=== PATIENT | female | born 1965 | race Caucasian/White ===

== ENCOUNTER 2019-02-14 23:46 | Inpatient (IN) | payer OTHER ==
[2019-02-15] MEDS: LORAZEPAM 2 MG INJ IV ×5 (00:46→20:06)
[2019-02-15] MEDS: SOD CHLORIDE 0.9% 1,000 ML IV (00:47)
[2019-02-15 01:00] LABS: ADD MAN DIFF? NO
[2019-02-15 01:03] LABS: BASOPHIL # 0.1 10^3/ul (0.0-0.1); BASOPHILS % 0.7 % (0.0-2.0); EOSINOPHILS # 0.1 10^3/ul (0.0-0.5); EOSINOPHILS % 1.4 % (0.0-7.0); HEMATOCRIT 32.6 % (37.0-47.0); HEMOGLOBIN 11.8 g/dl (12.0-16.0); LYMPHOCYTES # 1.7 10^3/ul (0.8-2.9); LYMPHOCYTES % 23.1 % (15.0-51.0); MEAN CORPUSCULAR HEMOGLOBIN 34.9 pg (29.0-33.0); MEAN CORPUSCULAR HGB CONC 36.2 g/dl (32.0-37.0); MEAN CORPUSCULAR VOLUME 96.4 fl (82.0-101.0); MEAN PLATELET VOLUME 10.5 fl (7.4-10.4); MONOCYTE # 0.6 10^3/ul (0.3-0.9); MONOCYTES % 7.6 % (0.0-11.0); NEUTROPHILS % 66.8 % (39.0-77.0); PLATELET COUNT 205 10^3/UL (140-415); RED BLOOD COUNT 3.38 10^6/ul (4.20-5.40); RED CELL DISTRIBUTION WIDTH 12.2 % (11.5-14.5)
[2019-02-15 01:03] LABS: WHITE BLOOD COUNT 7.4 10^3/ul (4.8-10.8)
[2019-02-15 01:20] LABS: ALANINE AMINOTRANSFERASE 27 IU/L (13-69); ALBUMIN 4.7 g/dl (3.3-4.9); ALBUMIN/GLOBULIN RATIO 1.34; ALKALINE PHOSPHATASE 172 IU/L (42-121); ANION GAP 17 (5-13); ASPARTATE AMINO TRANSFERASE 91 IU/L (15-46); BILIRUBIN,INDIRECT 0.7 mg/dl (0-1.1); BILIRUBIN,TOTAL 0.7 mg/dl (0.2-1.3); BLOOD UREA NITROGEN 10 mg/dl (7-20); CALCIUM 8.9 mg/dl (8.4-10.2); CARBON DIOXIDE 26 mmol/L (21-31); CHLORIDE 84 mmol/L (97-110); CREATININE 0.81 mg/dl (0.44-1.00); Estimated GFR > 60 mL/min (>60); GLUCOSE 107 mg/dl (70-220); POTASSIUM 3.8 mmol/L (3.5-5.1); SODIUM 127 mmol/L (135-144); TOTAL PROTEIN 8.2 g/dl (6.1-8.1)
[2019-02-15 01:24] LABS: INR 1.04; PARTIAL THROMBOPLASTIN TIME 25.6 Sec (23.0-35.0); PROTIME 13.7 Sec (11.9-14.9); PT RATIO 1.1
[2019-02-15 01:42] LABS: ACETAMINOPHEN < 10.0 ug/ml (10.0-30.0); ETHANOL < 10.0 mg/dl (0-0); SALICYLATE 1.1 mg/dl (5.0-30.0)
[2019-02-15 02:14] LABS: TROPONIN-I < 0.012 ng/ml (0.000-0.120)
[2019-02-15] MEDS ORDERED: SOD CHLORIDE 0.9% 1,000 ML IV (04:03)
[2019-02-15] MEDS ORDERED: DOCUSATE SODIUM 100 MG CAP PO (04:30)
[2019-02-15] MEDS ORDERED: ONDANSETRON 4 MG INJ IV ×2 (04:30)
[2019-02-15] MEDS ORDERED: BISACODYL (EC) 5 MG TAB PO (04:30)
[2019-02-15] MEDS ORDERED: ACETAMINOPHEN 325 MG TAB PO (04:30)
[2019-02-15] MEDS ORDERED: NACL 0.9% 3 ML SYG IV (04:30)
[2019-02-15 05:34] LABS: ADD MAN DIFF? NO
[2019-02-15 05:35] LABS: ADD UMIC YES; AMPHETAMINE/METHAMPHETAMINE Negative (NEGATIVE); BARBITURATES Negative (NEGATIVE); BENZODIAZEPINES Negative (NEGATIVE); CANNABINOIDS Negative (NEGATIVE); COCAINE Negative (NEGATIVE); OPIATES Negative (NEGATIVE); UR ASCORBIC ACID NEGATIVE (NEGATIVE); UR BACTERIA FEW /HPF (NONE SEEN); UR BILIRUBIN (Dip) NEGATIVE (NEGATIVE); UR BLOOD (Dip) 1+ mg/dL (NEGATIVE); UR CLARITY CLEAR (CLEAR); UR COLOR YELLOW (YELLOW); UR GLUCOSE (Dip) NEGATIVE (NEGATIVE); UR KETONES (Dip) TRACE mg/dL (NEGATIVE); UR LEUKOCYTE ESTERASE (Dip) TRACE Leu/ul (NEGATIVE); UR NITRITE (Dip) NEGATIVE (NEGATIVE); UR RBC 2 /HPF (0-5); UR SPECIFIC GRAVITY (Dip) 1.004 (1.003-1.030); UR TOTAL PROTEIN (Dip) NEGATIVE (NEGATIVE); UR UROBILINOGEN (Dip) NEGATIVE (NEGATIVE); UR WBC 6 /HPF (0-5)
[2019-02-15 05:36] LABS: BASOPHIL # 0.1 10^3/ul (0.0-0.1); BASOPHILS % 0.6 % (0.0-2.0); EOSINOPHILS % 0.4 % (0.0-7.0); HEMATOCRIT 29.7 % (37.0-47.0); HEMOGLOBIN 10.8 g/dl (12.0-16.0); LYMPHOCYTES # 1.8 10^3/ul (0.8-2.9); LYMPHOCYTES % 19.6 % (15.0-51.0); MEAN CORPUSCULAR HEMOGLOBIN 35.3 pg (29.0-33.0); MEAN CORPUSCULAR HGB CONC 36.4 g/dl (32.0-37.0); MEAN CORPUSCULAR VOLUME 97.1 fl (82.0-101.0); MEAN PLATELET VOLUME 10.4 fl (7.4-10.4); MONOCYTE # 0.5 10^3/ul (0.3-0.9); NEUTROPHIL # 6.5 10^3/ul (1.6-7.5); NEUTROPHILS % 73.1 % (39.0-77.0); PLATELET COUNT 180 10^3/UL (140-415); RED BLOOD COUNT 3.06 10^6/ul (4.20-5.40); RED CELL DISTRIBUTION WIDTH 12.1 % (11.5-14.5)
[2019-02-15] MEDS ORDERED: LORAZEPAM 2 MG INJ IV ×2 (06:00)
[2019-02-15 06:06] LABS: ALANINE AMINOTRANSFERASE 24 IU/L (13-69); ALBUMIN 3.8 g/dl (3.3-4.9); ALBUMIN/GLOBULIN RATIO 1.26; ALKALINE PHOSPHATASE 133 IU/L (42-121); ANION GAP 15 (5-13); ASPARTATE AMINO TRANSFERASE 70 IU/L (15-46); BILIRUBIN,INDIRECT 0.6 mg/dl (0-1.1); BILIRUBIN,TOTAL 0.6 mg/dl (0.2-1.3); BLOOD UREA NITROGEN 9 mg/dl (7-20); CALCIUM 7.9 mg/dl (8.4-10.2); CARBON DIOXIDE 24 mmol/L (21-31); CHLORIDE 90 mmol/L (97-110); CREATININE 0.66 mg/dl (0.44-1.00); Estimated GFR > 60 mL/min (>60); GLUCOSE 89 mg/dl (70-220); POTASSIUM 3.5 mmol/L (3.5-5.1); SODIUM 129 mmol/L (135-144); TOTAL PROTEIN 6.8 g/dl (6.1-8.1)
[2019-02-15 06:16] LABS: PHENYTOIN (DILANTIN) < 3.0 ug/ml (10.0-20.0)
[2019-02-15] MEDS ORDERED: THIAMINE 200 MG INJ IV (08:30)
[2019-02-15] MEDS: SOD CHLORIDE 0.9% 500 ML IV ×2 (08:42→16:16)
[2019-02-15] MEDS: THIAMINE 500 MG in SOD CHLORIDE 0.9% 250 ML IV ×3 (10:13→23:12)
[2019-02-15] MEDS ORDERED: DIPHENHYDRAMINE 1%/ZINC 28.3 GM CR TOP (10:30)
[2019-02-15 10:49] LABS: PHOSPHORUS 4.2 mg/dl (2.5-4.9)
[2019-02-15 10:51] LABS: AMMONIA < 9 umol/l (9-30)
[2019-02-15 10:54] LABS: MAGNESIUM 0.8 mg/dl (1.7-2.5)
[2019-02-15] MEDS: POTASSIUM CHLORIDE 100 ML IVPB ×2 (11:00→14:59)
[2019-02-15] MEDS: PHENYTOIN 1,000 MG in SOD CHLORIDE 0.9% 100 ML IV (12:00)
[2019-02-15] MEDS: DIPHENHYDRAMINE 50 MG INJ IV (13:13)
[2019-02-15] MEDS: MAGNESIUM SULFATE 4 GM/100 ML 100 ML IVPB (13:13)
[2019-02-15] MEDS: LEVETIRACETAM 750 MG TAB PO ×2 (13:15→20:02)
[2019-02-15] MEDS: CHLORDIAZEPOXIDE 25 MG CAP PO ×2 (13:15→20:02)
[2019-02-15] MEDS: PHENYTOIN 100 MG CAP PO ×2 (13:16→20:02)
[2019-02-15] MEDS: MULTIVITAMINS 10 ML, THIAMINE 100 MG, FOLIC ACID 1 MG in SOD CHLORIDE 0.9% 1,000 ML IVPB (14:07)
[2019-02-15] MEDS: POTASSIUM CHLORIDE (SR) 20 MEQ TAB PO (14:38)
[2019-02-15] MEDS ORDERED: HALOPERIDOL 5 MG INJ IM (16:30)
[2019-02-16] MEDS: LORAZEPAM 2 MG INJ IV ×4 (00:37→23:29)
[2019-02-16] MEDS: THIAMINE 500 MG in SOD CHLORIDE 0.9% 250 ML IV ×3 (05:00→21:09)
[2019-02-16 05:59] LABS: ADD MAN DIFF? NO
[2019-02-16 06:09] LABS: WHITE BLOOD COUNT 4.3 10^3/ul (4.8-10.8)
[2019-02-16 06:09] LABS: BASOPHILS % 0.7 % (0.0-2.0); EOSINOPHILS # 0.1 10^3/ul (0.0-0.5); EOSINOPHILS % 1.4 % (0.0-7.0); HEMATOCRIT 31.7 % (37.0-47.0); HEMOGLOBIN 10.5 g/dl (12.0-16.0); LYMPHOCYTES # 1.2 10^3/ul (0.8-2.9); LYMPHOCYTES % 28.4 % (15.0-51.0); MEAN CORPUSCULAR HGB CONC 33.1 g/dl (32.0-37.0); MEAN CORPUSCULAR VOLUME 102.6 fl (82.0-101.0); MEAN PLATELET VOLUME 10.6 fl (7.4-10.4); MONOCYTE # 0.3 10^3/ul (0.3-0.9); MONOCYTES % 7.5 % (0.0-11.0); NEUTROPHIL # 2.6 10^3/ul (1.6-7.5); NEUTROPHILS % 61.5 % (39.0-77.0); PLATELET COUNT 170 10^3/UL (140-415); RED BLOOD COUNT 3.09 10^6/ul (4.20-5.40); RED CELL DISTRIBUTION WIDTH 12.5 % (11.5-14.5)
[2019-02-16 06:57] LABS: IRON 46 ug/dl (35-150)
[2019-02-16 07:07] LABS: % IRON SATURATION 30 % SAT (22-52); TOTAL IRON BINDING CAPACITY 155 ug/dl (241-421)
[2019-02-16 07:22] LABS: ALANINE AMINOTRANSFERASE 23 IU/L (13-69); ALBUMIN 3.3 g/dl (3.3-4.9); ALBUMIN/GLOBULIN RATIO 1.13; ALKALINE PHOSPHATASE 115 IU/L (42-121); ANION GAP 9 (5-13); ASPARTATE AMINO TRANSFERASE 81 IU/L (15-46); BILIRUBIN,INDIRECT 0.4 mg/dl (0-1.1); BILIRUBIN,TOTAL 0.4 mg/dl (0.2-1.3); BLOOD UREA NITROGEN 15 mg/dl (7-20); CARBON DIOXIDE 25 mmol/L (21-31); CHLORIDE 108 mmol/L (97-110); CHOL/HDL RATIO 2.1 RATIO; CHOLESTEROL 200 mg/dl (100-200); CREATININE 0.86 mg/dl (0.44-1.00); Estimated GFR > 60 mL/min (>60); GLUCOSE 116 mg/dl (70-220); HDL CHOLESTEROL 92 mg/dl (37-92); LDL CHOLESTEROL,CALCULATED 93 mg/dl; MAGNESIUM 1.9 mg/dl (1.7-2.5); POTASSIUM 3.5 mmol/L (3.5-5.1); SODIUM 142 mmol/L (135-144); TOTAL PROTEIN 6.2 g/dl (6.1-8.1); TRIGLYCERIDES 77 mg/dl (0-149)
[2019-02-16] MEDS: CHLORDIAZEPOXIDE 25 MG CAP PO ×3 (09:10→20:12)
[2019-02-16] MEDS: LEVETIRACETAM 750 MG TAB PO ×2 (09:10→20:12)
[2019-02-16] MEDS: PHENYTOIN 100 MG CAP PO ×2 (09:10→20:12)
[2019-02-17] MEDS: THIAMINE 500 MG in SOD CHLORIDE 0.9% 250 ML IV ×2 (05:04→17:22)
[2019-02-17] MEDS: LORAZEPAM 2 MG INJ IV ×3 (05:04→20:48)
[2019-02-17 06:07] LABS: ADD MAN DIFF? NO
[2019-02-17 06:12] LABS: BASOPHILS % 0.8 % (0.0-2.0); EOSINOPHILS # 0.1 10^3/ul (0.0-0.5); EOSINOPHILS % 2.5 % (0.0-7.0); HEMATOCRIT 30.3 % (37.0-47.0); HEMOGLOBIN 10.1 g/dl (12.0-16.0); LYMPHOCYTES # 1.5 10^3/ul (0.8-2.9); LYMPHOCYTES % 31.3 % (15.0-51.0); MEAN CORPUSCULAR HEMOGLOBIN 35.1 pg (29.0-33.0); MEAN CORPUSCULAR HGB CONC 33.3 g/dl (32.0-37.0); MEAN CORPUSCULAR VOLUME 105.2 fl (82.0-101.0); MONOCYTE # 0.4 10^3/ul (0.3-0.9); MONOCYTES % 7.2 % (0.0-11.0); NEUTROPHIL # 2.8 10^3/ul (1.6-7.5); NEUTROPHILS % 57.8 % (39.0-77.0); PLATELET COUNT 164 10^3/UL (140-415); RED BLOOD COUNT 2.88 10^6/ul (4.20-5.40); RED CELL DISTRIBUTION WIDTH 12.7 % (11.5-14.5)
[2019-02-17 06:12] LABS: WHITE BLOOD COUNT 4.9 10^3/ul (4.8-10.8)
[2019-02-17 07:16] LABS: ALANINE AMINOTRANSFERASE 53 IU/L (13-69); ALBUMIN 3.6 g/dl (3.3-4.9); ALBUMIN/GLOBULIN RATIO 1.16; ALKALINE PHOSPHATASE 118 IU/L (42-121); ANION GAP 9 (5-13); ASPARTATE AMINO TRANSFERASE 154 IU/L (15-46); BILIRUBIN,INDIRECT 0.3 mg/dl (0-1.1); BILIRUBIN,TOTAL 0.3 mg/dl (0.2-1.3); BLOOD UREA NITROGEN 12 mg/dl (7-20); CALCIUM 8.7 mg/dl (8.4-10.2); CARBON DIOXIDE 24 mmol/L (21-31); CHLORIDE 105 mmol/L (97-110); CREATININE 0.74 mg/dl (0.44-1.00); Estimated GFR > 60 mL/min (>60); GLUCOSE 103 mg/dl (70-220); POTASSIUM 4.1 mmol/L (3.5-5.1); SODIUM 138 mmol/L (135-144); TOTAL PROTEIN 6.7 g/dl (6.1-8.1)
[2019-02-17 07:19] LABS: MAGNESIUM 1.4 mg/dl (1.7-2.5)
[2019-02-17] MEDS: LEVETIRACETAM 750 MG TAB PO ×2 (10:03→20:48)
[2019-02-17] MEDS: MULTIVITAMINS THERAPEUTIC TAB PO (10:03)
[2019-02-17] MEDS: DIPHENHYDRAMINE 50 MG INJ IV (10:03)
[2019-02-17] MEDS: MAGNESIUM SULFATE 4 GM/100 ML 100 ML IVPB (10:03)
[2019-02-17] MEDS: FOLIC ACID 1 MG TAB PO (10:03)
[2019-02-17] MEDS: PHENYTOIN 100 MG CAP PO ×2 (10:04→20:48)
[2019-02-17] MEDS: CHLORDIAZEPOXIDE 25 MG CAP PO (20:48)
[2019-02-18 00:27] LABS: LEVETIRACETAM 39.8 mcg/mL (12.0-46.0)
[2019-02-18] MEDS: THIAMINE 500 MG in SOD CHLORIDE 0.9% 250 ML IV ×3 (01:18→18:01)
[2019-02-18] MEDS: LORAZEPAM 2 MG INJ IV ×3 (02:15→20:46)
[2019-02-18 06:03] LABS: ADD MAN DIFF? NO
[2019-02-18 06:07] LABS: WHITE BLOOD COUNT 5.2 10^3/ul (4.8-10.8)
[2019-02-18 06:07] LABS: BASOPHIL # 0.1 10^3/ul (0.0-0.1); BASOPHILS % 1.2 % (0.0-2.0); EOSINOPHILS # 0.2 10^3/ul (0.0-0.5); EOSINOPHILS % 3.5 % (0.0-7.0); HEMATOCRIT 27.8 % (37.0-47.0); HEMOGLOBIN 9.2 g/dl (12.0-16.0); LYMPHOCYTES # 1.6 10^3/ul (0.8-2.9); LYMPHOCYTES % 31.4 % (15.0-51.0); MEAN CORPUSCULAR HEMOGLOBIN 34.7 pg (29.0-33.0); MEAN CORPUSCULAR HGB CONC 33.1 g/dl (32.0-37.0); MEAN CORPUSCULAR VOLUME 104.9 fl (82.0-101.0); MEAN PLATELET VOLUME 10.8 fl (7.4-10.4); MONOCYTE # 0.4 10^3/ul (0.3-0.9); MONOCYTES % 8.5 % (0.0-11.0); NEUTROPHIL # 2.9 10^3/ul (1.6-7.5); PLATELET COUNT 172 10^3/UL (140-415); RED BLOOD COUNT 2.65 10^6/ul (4.20-5.40)
[2019-02-18 06:30] LABS: ALANINE AMINOTRANSFERASE 42 IU/L (13-69); ALBUMIN 3.1 g/dl (3.3-4.9); ALBUMIN/GLOBULIN RATIO 1.06; ALKALINE PHOSPHATASE 104 IU/L (42-121); ANION GAP 6 (5-13); ASPARTATE AMINO TRANSFERASE 72 IU/L (15-46); BILIRUBIN,INDIRECT 0.2 mg/dl (0-1.1); BILIRUBIN,TOTAL 0.2 mg/dl (0.2-1.3); BLOOD UREA NITROGEN 12 mg/dl (7-20); CALCIUM 8.8 mg/dl (8.4-10.2); CARBON DIOXIDE 25 mmol/L (21-31); CHLORIDE 107 mmol/L (97-110); CREATININE 1.01 mg/dl (0.44-1.00); Estimated GFR 57 mL/min (>60); GLUCOSE 119 mg/dl (70-220); SODIUM 138 mmol/L (135-144)
[2019-02-18] MEDS: PHENYTOIN 100 MG CAP PO ×2 (09:29→20:46)
[2019-02-18] MEDS: FOLIC ACID 1 MG TAB PO (09:29)
[2019-02-18] MEDS: MULTIVITAMINS THERAPEUTIC TAB PO (09:29)
[2019-02-18] MEDS: LEVETIRACETAM 750 MG TAB PO ×2 (09:29→20:46)
[2019-02-18] MEDS: CHLORDIAZEPOXIDE 25 MG CAP PO ×2 (09:30→20:46)
[2019-02-18 11:03] LABS: PHENYTOIN (DILANTIN) 7.7 ug/ml (10.0-20.0)
[2019-02-19] MEDS: THIAMINE 500 MG in SOD CHLORIDE 0.9% 250 ML IV ×3 (01:18→16:57)
[2019-02-19 06:05] LABS: ADD MAN DIFF? NO
[2019-02-19 06:09] LABS: WHITE BLOOD COUNT 5.4 10^3/ul (4.8-10.8)
[2019-02-19 06:09] LABS: BASOPHIL # 0.1 10^3/ul (0.0-0.1); BASOPHILS % 1.1 % (0.0-2.0); EOSINOPHILS # 0.2 10^3/ul (0.0-0.5); EOSINOPHILS % 3.9 % (0.0-7.0); HEMOGLOBIN 9.7 g/dl (12.0-16.0); LYMPHOCYTES # 2.1 10^3/ul (0.8-2.9); LYMPHOCYTES % 38.9 % (15.0-51.0); MEAN CORPUSCULAR HEMOGLOBIN 34.6 pg (29.0-33.0); MEAN CORPUSCULAR HGB CONC 32.3 g/dl (32.0-37.0); MEAN CORPUSCULAR VOLUME 107.1 fl (82.0-101.0); MEAN PLATELET VOLUME 10.8 fl (7.4-10.4); MONOCYTE # 0.5 10^3/ul (0.3-0.9); MONOCYTES % 9.7 % (0.0-11.0); NEUTROPHIL # 2.5 10^3/ul (1.6-7.5); NEUTROPHILS % 46.2 % (39.0-77.0); PLATELET COUNT 203 10^3/UL (140-415); RED CELL DISTRIBUTION WIDTH 13.3 % (11.5-14.5)
[2019-02-19 06:41] LABS: MAGNESIUM 1.4 mg/dl (1.7-2.5)
[2019-02-19 06:49] LABS: ALANINE AMINOTRANSFERASE 39 IU/L (13-69); ALBUMIN 3.3 g/dl (3.3-4.9); ALBUMIN/GLOBULIN RATIO 1.06; ALKALINE PHOSPHATASE 113 IU/L (42-121); ANION GAP 7 (5-13); ASPARTATE AMINO TRANSFERASE 52 IU/L (15-46); BILIRUBIN,INDIRECT 0.2 mg/dl (0-1.1); BILIRUBIN,TOTAL 0.2 mg/dl (0.2-1.3); BLOOD UREA NITROGEN 20 mg/dl (7-20); CALCIUM 9.2 mg/dl (8.4-10.2); CARBON DIOXIDE 25 mmol/L (21-31); CHLORIDE 108 mmol/L (97-110); CREATININE 0.83 mg/dl (0.44-1.00); Estimated GFR > 60 mL/min (>60); GLUCOSE 97 mg/dl (70-220); POTASSIUM 4.9 mmol/L (3.5-5.1); SODIUM 140 mmol/L (135-144); TOTAL PROTEIN 6.4 g/dl (6.1-8.1)
[2019-02-19] MEDS: MULTIVITAMINS THERAPEUTIC TAB PO (08:16)
[2019-02-19] MEDS: CHLORDIAZEPOXIDE 25 MG CAP PO ×2 (08:16→21:05)
[2019-02-19] MEDS: PHENYTOIN 100 MG CAP PO ×2 (08:17→21:05)
[2019-02-19] MEDS: FOLIC ACID 1 MG TAB PO (08:17)
[2019-02-19] MEDS: LEVETIRACETAM 750 MG TAB PO ×2 (08:17→21:05)
[2019-02-19] MEDS: MAGNESIUM SULFATE 2 GM/50 ML 50 ML IVPB (11:55)
[2019-02-20 05:49] LABS: ADD MAN DIFF? NO
[2019-02-20 05:59] LABS: BASOPHIL # 0.1 10^3/ul (0.0-0.1); BASOPHILS % 0.9 % (0.0-2.0); EOSINOPHILS # 0.2 10^3/ul (0.0-0.5); EOSINOPHILS % 3.6 % (0.0-7.0); HEMATOCRIT 30.4 % (37.0-47.0); LYMPHOCYTES # 2.2 10^3/ul (0.8-2.9); LYMPHOCYTES % 39.4 % (15.0-51.0); MEAN CORPUSCULAR HEMOGLOBIN 34.5 pg (29.0-33.0); MEAN CORPUSCULAR HGB CONC 32.9 g/dl (32.0-37.0); MEAN CORPUSCULAR VOLUME 104.8 fl (82.0-101.0); MEAN PLATELET VOLUME 10.3 fl (7.4-10.4); MONOCYTE # 0.5 10^3/ul (0.3-0.9); MONOCYTES % 8.9 % (0.0-11.0); NEUTROPHIL # 2.6 10^3/ul (1.6-7.5); NEUTROPHILS % 46.8 % (39.0-77.0); PLATELET COUNT 218 10^3/UL (140-415); RED CELL DISTRIBUTION WIDTH 13.1 % (11.5-14.5)
[2019-02-20 05:59] LABS: WHITE BLOOD COUNT 5.5 10^3/ul (4.8-10.8)
[2019-02-20] MEDS: LEVETIRACETAM 750 MG TAB PO ×2 (09:02→20:45)
[2019-02-20] MEDS: FOLIC ACID 1 MG TAB PO (09:02)
[2019-02-20] MEDS: PHENYTOIN 100 MG CAP PO ×3 (09:02→20:45)
[2019-02-20] MEDS: THIAMINE 100 MG TAB PO (09:02)
[2019-02-20] MEDS: MULTIVITAMINS THERAPEUTIC TAB PO (09:02)
[2019-02-20] MEDS: CHLORDIAZEPOXIDE 25 MG CAP PO (09:02)
[2019-02-20] MEDS: FERROUS SULFATE (EC) 325 MG TAB PO (14:32)
[2019-02-21 05:47] LABS: ADD MAN DIFF? NO
[2019-02-21 06:09] LABS: WHITE BLOOD COUNT 4.8 10^3/ul (4.8-10.8)
[2019-02-21 06:09] LABS: BASOPHIL # 0.1 10^3/ul (0.0-0.1); BASOPHILS % 1.2 % (0.0-2.0); EOSINOPHILS # 0.1 10^3/ul (0.0-0.5); EOSINOPHILS % 2.7 % (0.0-7.0); HEMATOCRIT 30.7 % (37.0-47.0); LYMPHOCYTES # 2.1 10^3/ul (0.8-2.9); LYMPHOCYTES % 43.4 % (15.0-51.0); MEAN CORPUSCULAR HEMOGLOBIN 34.4 pg (29.0-33.0); MEAN CORPUSCULAR HGB CONC 32.6 g/dl (32.0-37.0); MEAN CORPUSCULAR VOLUME 105.5 fl (82.0-101.0); MEAN PLATELET VOLUME 10.7 fl (7.4-10.4); MONOCYTE # 0.5 10^3/ul (0.3-0.9); MONOCYTES % 10.6 % (0.0-11.0); NEUTROPHILS % 41.5 % (39.0-77.0); PLATELET COUNT 236 10^3/UL (140-415); RED BLOOD COUNT 2.91 10^6/ul (4.20-5.40); RED CELL DISTRIBUTION WIDTH 13.3 % (11.5-14.5)
[2019-02-21 06:22] LABS: ANION GAP 9 (5-13); BLOOD UREA NITROGEN 29 mg/dl (7-20); CARBON DIOXIDE 24 mmol/L (21-31); CHLORIDE 108 mmol/L (97-110); CREATININE 0.95 mg/dl (0.44-1.00); Estimated GFR > 60 mL/min (>60); GLUCOSE 107 mg/dl (70-220); MAGNESIUM 1.5 mg/dl (1.7-2.5); PHOSPHORUS 7.3 mg/dl (2.5-4.9); POTASSIUM 5.4 mmol/L (3.5-5.1); SODIUM 141 mmol/L (135-144)
[2019-02-21 06:32] LABS: PHENYTOIN (DILANTIN) 6.5 ug/ml (10.0-20.0)
[2019-02-21] MEDS: MULTIVITAMINS THERAPEUTIC TAB PO (09:05)
[2019-02-21] MEDS: FERROUS SULFATE (EC) 325 MG TAB PO (09:05)
[2019-02-21] MEDS: CHLORDIAZEPOXIDE 5 MG CAP PO (09:05)
[2019-02-21] MEDS: THIAMINE 100 MG TAB PO (09:05)
[2019-02-21] MEDS: PHENYTOIN 100 MG CAP PO ×3 (09:05→20:49)
[2019-02-21] MEDS: FOLIC ACID 1 MG TAB PO (09:05)
[2019-02-21] MEDS: LEVETIRACETAM 750 MG TAB PO ×2 (09:05→20:51)
[2019-02-21] MEDS ORDERED: MAGNESIUM SULFATE 2 GM/50 ML 50 ML IVPB (13:30)
[2019-02-21] MEDS: MAGNESIUM OXIDE 400 MG TAB PO (15:31)
[2019-02-21] MEDS: SODIUM POLYSTYRENE 15 GM KIT (POWDER + SORBITOL) PO (15:32)
[2019-02-22] MEDS ORDERED: PATIENT'S OWN MEDICATION TOP (03:30)
[2019-02-22 05:53] LABS: ADD MAN DIFF? NO
[2019-02-22 05:58] LABS: WHITE BLOOD COUNT 4.4 10^3/ul (4.8-10.8)
[2019-02-22 05:58] LABS: BASOPHIL # 0.1 10^3/ul (0.0-0.1); BASOPHILS % 1.8 % (0.0-2.0); EOSINOPHILS # 0.1 10^3/ul (0.0-0.5); EOSINOPHILS % 2.7 % (0.0-7.0); HEMATOCRIT 30.9 % (37.0-47.0); HEMOGLOBIN 9.8 g/dl (12.0-16.0); LYMPHOCYTES % 46.3 % (15.0-51.0); MEAN CORPUSCULAR HEMOGLOBIN 34.1 pg (29.0-33.0); MEAN CORPUSCULAR HGB CONC 31.7 g/dl (32.0-37.0); MEAN CORPUSCULAR VOLUME 107.7 fl (82.0-101.0); MEAN PLATELET VOLUME 11.2 fl (7.4-10.4); MONOCYTE # 0.5 10^3/ul (0.3-0.9); MONOCYTES % 10.5 % (0.0-11.0); NEUTROPHIL # 1.7 10^3/ul (1.6-7.5); NEUTROPHILS % 38.2 % (39.0-77.0); PLATELET COUNT 202 10^3/UL (140-415); RED BLOOD COUNT 2.87 10^6/ul (4.20-5.40); RED CELL DISTRIBUTION WIDTH 13.2 % (11.5-14.5)
[2019-02-22] MEDS ORDERED: HYDROCORTISONE 1% 28 GM CR TOP (06:00)
[2019-02-22 06:23] LABS: ANION GAP 10 (5-13); BLOOD UREA NITROGEN 31 mg/dl (7-20); CALCIUM 9.7 mg/dl (8.4-10.2); CARBON DIOXIDE 22 mmol/L (21-31); CHLORIDE 109 mmol/L (97-110); CREATININE 0.92 mg/dl (0.44-1.00); Estimated GFR > 60 mL/min (>60); GLUCOSE 103 mg/dl (70-220); MAGNESIUM 1.3 mg/dl (1.7-2.5); PHOSPHORUS 6.7 mg/dl (2.5-4.9); SODIUM 141 mmol/L (135-144)
[2019-02-22] MEDS: FERROUS SULFATE (EC) 325 MG TAB PO (08:31)
[2019-02-22] MEDS: FOLIC ACID 1 MG TAB PO (08:32)
[2019-02-22] MEDS: LORATADINE 10 MG TAB PO (08:32)
[2019-02-22] MEDS: MULTIVITAMINS THERAPEUTIC TAB PO (08:32)
[2019-02-22] MEDS: PHENYTOIN 100 MG CAP PO ×3 (08:33→21:13)
[2019-02-22] MEDS: THIAMINE 100 MG TAB PO (08:33)
[2019-02-22] MEDS: SERTRALINE 100 MG TAB PO (08:33)
[2019-02-22] MEDS: LEVETIRACETAM 750 MG TAB PO ×2 (08:33→21:13)
[2019-02-22] MEDS ORDERED: PATIENT'S OWN MEDICATION PO (09:00)
[2019-02-22] MEDS: MAGNESIUM OXIDE 400 MG TAB PO (10:26)
[2019-02-23 06:02] LABS: ADD MAN DIFF? NO
[2019-02-23 06:11] LABS: WHITE BLOOD COUNT 4.7 10^3/ul (4.8-10.8)
[2019-02-23 06:11] LABS: BASOPHIL # 0.1 10^3/ul (0.0-0.1); BASOPHILS % 1.7 % (0.0-2.0); EOSINOPHILS # 0.1 10^3/ul (0.0-0.5); HEMATOCRIT 29.3 % (37.0-47.0); HEMOGLOBIN 9.5 g/dl (12.0-16.0); LYMPHOCYTES # 2.3 10^3/ul (0.8-2.9); LYMPHOCYTES % 48.1 % (15.0-51.0); MEAN CORPUSCULAR HEMOGLOBIN 34.4 pg (29.0-33.0); MEAN CORPUSCULAR HGB CONC 32.4 g/dl (32.0-37.0); MEAN CORPUSCULAR VOLUME 106.2 fl (82.0-101.0); MEAN PLATELET VOLUME 10.8 fl (7.4-10.4); MONOCYTE # 0.5 10^3/ul (0.3-0.9); MONOCYTES % 11.1 % (0.0-11.0); NEUTROPHIL # 1.7 10^3/ul (1.6-7.5); NEUTROPHILS % 35.9 % (39.0-77.0); PLATELET COUNT 265 10^3/UL (140-415); RED BLOOD COUNT 2.76 10^6/ul (4.20-5.40); RED CELL DISTRIBUTION WIDTH 13.1 % (11.5-14.5)
[2019-02-23 06:52] LABS: ANION GAP 8 (5-13); BLOOD UREA NITROGEN 33 mg/dl (7-20); CALCIUM 9.8 mg/dl (8.4-10.2); CARBON DIOXIDE 27 mmol/L (21-31); CHLORIDE 104 mmol/L (97-110); CREATININE 0.95 mg/dl (0.44-1.00); Estimated GFR > 60 mL/min (>60); GLUCOSE 94 mg/dl (70-220); MAGNESIUM 1.3 mg/dl (1.7-2.5); PHOSPHORUS 6.3 mg/dl (2.5-4.9); POTASSIUM 5.1 mmol/L (3.5-5.1); SODIUM 139 mmol/L (135-144)
[2019-02-23] MEDS: LORATADINE 10 MG TAB PO ×2 (08:15→08:29)
[2019-02-23] MEDS: FOLIC ACID 1 MG TAB PO (08:28)
[2019-02-23] MEDS: THIAMINE 100 MG TAB PO (08:28)
[2019-02-23] MEDS: LEVETIRACETAM 750 MG TAB PO ×2 (08:28→20:55)
[2019-02-23] MEDS: FERROUS SULFATE (EC) 325 MG TAB PO (08:28)
[2019-02-23] MEDS: SERTRALINE 100 MG TAB PO (08:28)
[2019-02-23] MEDS: PHENYTOIN 100 MG CAP PO ×3 (08:28→20:55)
[2019-02-23] MEDS: DIPHENHYDRAMINE 50 MG INJ IV (11:14)
[2019-02-23] MEDS: MAGNESIUM OXIDE 400 MG TAB PO (14:31)
[2019-02-23] MEDS: PHENYTOIN 500 MG in SOD CHLORIDE 0.9% 100 ML IV (14:31)
[2019-02-24 05:36] LABS: ADD MAN DIFF? NO
[2019-02-24 05:41] LABS: WHITE BLOOD COUNT 4.7 10^3/ul (4.8-10.8)
[2019-02-24 05:41] LABS: BASOPHIL # 0.1 10^3/ul (0.0-0.1); BASOPHILS % 1.5 % (0.0-2.0); EOSINOPHILS # 0.2 10^3/ul (0.0-0.5); EOSINOPHILS % 3.2 % (0.0-7.0); HEMATOCRIT 30.2 % (37.0-47.0); HEMOGLOBIN 9.5 g/dl (12.0-16.0); LYMPHOCYTES # 2.4 10^3/ul (0.8-2.9); LYMPHOCYTES % 50.5 % (15.0-51.0); MEAN CORPUSCULAR HEMOGLOBIN 33.5 pg (29.0-33.0); MEAN CORPUSCULAR HGB CONC 31.5 g/dl (32.0-37.0); MEAN CORPUSCULAR VOLUME 106.3 fl (82.0-101.0); MEAN PLATELET VOLUME 10.6 fl (7.4-10.4); MONOCYTE # 0.5 10^3/ul (0.3-0.9); MONOCYTES % 10.3 % (0.0-11.0); NEUTROPHIL # 1.6 10^3/ul (1.6-7.5); NEUTROPHILS % 34.1 % (39.0-77.0); PLATELET COUNT 274 10^3/UL (140-415); RED BLOOD COUNT 2.84 10^6/ul (4.20-5.40); RED CELL DISTRIBUTION WIDTH 13.1 % (11.5-14.5)
[2019-02-24 06:02] LABS: ANION GAP 9 (5-13); BLOOD UREA NITROGEN 35 mg/dl (7-20); CARBON DIOXIDE 26 mmol/L (21-31); CHLORIDE 106 mmol/L (97-110); CREATININE 0.95 mg/dl (0.44-1.00); Estimated GFR > 60 mL/min (>60); GLUCOSE 99 mg/dl (70-220); MAGNESIUM 1.4 mg/dl (1.7-2.5); PHOSPHORUS 6.5 mg/dl (2.5-4.9); POTASSIUM 5.1 mmol/L (3.5-5.1); SODIUM 141 mmol/L (135-144)
[2019-02-24 06:06] LABS: PHENYTOIN (DILANTIN) 13.5 ug/ml (10.0-20.0)
[2019-02-24] MEDS: SERTRALINE 100 MG TAB PO (08:33)
[2019-02-24] MEDS: PHENYTOIN 100 MG CAP PO ×3 (08:34→20:38)
[2019-02-24] MEDS: LEVETIRACETAM 750 MG TAB PO ×2 (08:34→20:38)
[2019-02-24] MEDS: THIAMINE 100 MG TAB PO (08:34)
[2019-02-24] MEDS: FOLIC ACID 1 MG TAB PO (08:34)
[2019-02-24] MEDS: FERROUS SULFATE (EC) 325 MG TAB PO (08:34)
[2019-02-24] MEDS: LORATADINE 10 MG TAB PO (08:34)
[2019-02-24] MEDS: MAGNESIUM OXIDE 400 MG TAB PO (10:49)
[2019-02-24] MEDS: HYDROCORTISONE 2.5% 28.35 GM CR TOP (15:47)
[2019-02-24 15:54] LABS: PARATHYROID HORMONE 17.7 pg/ml (24.0-73.0)
[2019-02-25 00:35] LABS: ADD UMIC YES; UR ASCORBIC ACID NEGATIVE (NEGATIVE); UR BILIRUBIN (Dip) NEGATIVE (NEGATIVE); UR BLOOD (Dip) NEGATIVE (NEGATIVE); UR CLARITY SLIGHTLY CLOUDY (CLEAR); UR COLOR YELLOW (YELLOW); UR GLUCOSE (Dip) NEGATIVE (NEGATIVE); UR KETONES (Dip) NEGATIVE (NEGATIVE); UR LEUKOCYTE ESTERASE (Dip) TRACE Leu/ul (NEGATIVE); UR NITRITE (Dip) NEGATIVE (NEGATIVE); UR RBC 0 /HPF (0-5); UR SPECIFIC GRAVITY (Dip) 1.013 (1.003-1.030); UR SQUAMOUS EPITHELIAL CELL FEW /HPF (FEW); UR TOTAL PROTEIN (Dip) NEGATIVE (NEGATIVE); UR UROBILINOGEN (Dip) NEGATIVE (NEGATIVE); UR WBC 4 /HPF (0-5)
[2019-02-25 00:40] LABS: SODIUM,URINE RANDOM 69 mmol/L (30-90)
[2019-02-25 00:40] LABS: CREATININE,URINE RANDOM 39.39 mg/dl (20-320)
[2019-02-25 05:28] LABS: ADD MAN DIFF? NO
[2019-02-25 05:32] LABS: WHITE BLOOD COUNT 5.5 10^3/ul (4.8-10.8)
[2019-02-25 05:33] LABS: BASOPHIL # 0.1 10^3/ul (0.0-0.1); BASOPHILS % 1.8 % (0.0-2.0); EOSINOPHILS # 0.2 10^3/ul (0.0-0.5); EOSINOPHILS % 3.1 % (0.0-7.0); HEMATOCRIT 29.9 % (37.0-47.0); HEMOGLOBIN 9.8 g/dl (12.0-16.0); LYMPHOCYTES # 2.6 10^3/ul (0.8-2.9); LYMPHOCYTES % 46.6 % (15.0-51.0); MEAN CORPUSCULAR HEMOGLOBIN 34.5 pg (29.0-33.0); MEAN CORPUSCULAR HGB CONC 32.8 g/dl (32.0-37.0); MEAN CORPUSCULAR VOLUME 105.3 fl (82.0-101.0); MEAN PLATELET VOLUME 10.8 fl (7.4-10.4); MONOCYTE # 0.5 10^3/ul (0.3-0.9); NEUTROPHIL # 2.1 10^3/ul (1.6-7.5); NEUTROPHILS % 39.1 % (39.0-77.0); PLATELET COUNT 288 10^3/UL (140-415); RED BLOOD COUNT 2.84 10^6/ul (4.20-5.40); RED CELL DISTRIBUTION WIDTH 13.1 % (11.5-14.5)
[2019-02-25 06:11] LABS: ANION GAP 10 (5-13); BLOOD UREA NITROGEN 39 mg/dl (7-20); CALCIUM 10.2 mg/dl (8.4-10.2); CARBON DIOXIDE 26 mmol/L (21-31); CHLORIDE 103 mmol/L (97-110); CREATININE 1.02 mg/dl (0.44-1.00); Estimated GFR 56 mL/min (>60); GLUCOSE 99 mg/dl (70-220); MAGNESIUM 1.4 mg/dl (1.7-2.5); PHOSPHORUS 7.4 mg/dl (2.5-4.9); SODIUM 139 mmol/L (135-144)
[2019-02-25] MEDS: MAGNESIUM SULFATE 2 GM/50 ML 50 ML IVPB (08:04)
[2019-02-25] MEDS: CHOLECALCIFEROL 1,000 UNIT TAB PO (08:04)
[2019-02-25] MEDS: FOLIC ACID 1 MG TAB PO (08:05)
[2019-02-25] MEDS: SERTRALINE 100 MG TAB PO (08:05)
[2019-02-25] MEDS: PHENYTOIN 100 MG CAP PO ×3 (08:05→20:14)
[2019-02-25] MEDS: LORATADINE 10 MG TAB PO (08:05)
[2019-02-25] MEDS: LEVETIRACETAM 750 MG TAB PO ×2 (08:05→20:14)
[2019-02-25] MEDS: THIAMINE 100 MG TAB PO (08:05)
[2019-02-25] MEDS: FERROUS SULFATE (EC) 325 MG TAB PO (08:05)
[2019-02-25] MEDS: HYDROCORTISONE 2.5% 28.35 GM CR TOP (08:06)
[2019-02-25 15:56] LABS: LEVETIRACETAM 86.2 mcg/mL (12.0-46.0)
[2019-02-26 05:23] LABS: ADD MAN DIFF? NO
[2019-02-26 05:40] LABS: BASOPHIL # 0.1 10^3/ul (0.0-0.1); BASOPHILS % 1.5 % (0.0-2.0); EOSINOPHILS # 0.2 10^3/ul (0.0-0.5); EOSINOPHILS % 2.7 % (0.0-7.0); HEMATOCRIT 31.6 % (37.0-47.0); HEMOGLOBIN 10.3 g/dl (12.0-16.0); LYMPHOCYTES # 2.6 10^3/ul (0.8-2.9); LYMPHOCYTES % 43.2 % (15.0-51.0); MEAN CORPUSCULAR HEMOGLOBIN 34.7 pg (29.0-33.0); MEAN CORPUSCULAR HGB CONC 32.6 g/dl (32.0-37.0); MEAN CORPUSCULAR VOLUME 106.4 fl (82.0-101.0); MEAN PLATELET VOLUME 11.2 fl (7.4-10.4); MONOCYTE # 0.4 10^3/ul (0.3-0.9); MONOCYTES % 7.2 % (0.0-11.0); NEUTROPHIL # 2.7 10^3/ul (1.6-7.5); NEUTROPHILS % 45.1 % (39.0-77.0); RED BLOOD COUNT 2.97 10^6/ul (4.20-5.40)
[2019-02-26 05:43] LABS: PLATELET COUNT 213 10^3/UL (140-415); POSITIVE DIFF @See below
[2019-02-26 05:55] LABS: ANION GAP 11 (5-13); BLOOD UREA NITROGEN 38 mg/dl (7-20); CALCIUM 10.3 mg/dl (8.4-10.2); CARBON DIOXIDE 26 mmol/L (21-31); CHLORIDE 102 mmol/L (97-110); CREATININE 1.01 mg/dl (0.44-1.00); Estimated GFR 57 mL/min (>60); GLUCOSE 92 mg/dl (70-220); MAGNESIUM 1.7 mg/dl (1.7-2.5); PHOSPHORUS 6.7 mg/dl (2.5-4.9); POTASSIUM 4.6 mmol/L (3.5-5.1); SODIUM 139 mmol/L (135-144)
[2019-02-26] MEDS: LEVETIRACETAM 750 MG TAB PO ×2 (08:09→20:05)
[2019-02-26] MEDS: FERROUS SULFATE (EC) 325 MG TAB PO (08:09)
[2019-02-26] MEDS: SERTRALINE 100 MG TAB PO (08:09)
[2019-02-26] MEDS: PHENYTOIN 100 MG CAP PO ×3 (08:09→20:04)
[2019-02-26] MEDS: CHOLECALCIFEROL 1,000 UNIT TAB PO (08:09)
[2019-02-26] MEDS: LORATADINE 10 MG TAB PO (08:09)
[2019-02-26] MEDS: THIAMINE 100 MG TAB PO (08:09)
[2019-02-26] MEDS: FOLIC ACID 1 MG TAB PO (08:09)
[2019-02-27 05:58] LABS: ADD MAN DIFF? NO
[2019-02-27 06:05] LABS: BASOPHIL # 0.1 10^3/ul (0.0-0.1); BASOPHILS % 1.5 % (0.0-2.0); EOSINOPHILS # 0.2 10^3/ul (0.0-0.5); EOSINOPHILS % 2.4 % (0.0-7.0); HEMOGLOBIN 9.7 g/dl (12.0-16.0); LYMPHOCYTES # 2.7 10^3/ul (0.8-2.9); LYMPHOCYTES % 40.9 % (15.0-51.0); MEAN CORPUSCULAR HEMOGLOBIN 34.3 pg (29.0-33.0); MEAN CORPUSCULAR HGB CONC 33.4 g/dl (32.0-37.0); MEAN CORPUSCULAR VOLUME 102.5 fl (82.0-101.0); MEAN PLATELET VOLUME 10.8 fl (7.4-10.4); MONOCYTE # 0.5 10^3/ul (0.3-0.9); MONOCYTES % 7.2 % (0.0-11.0); NEUTROPHIL # 3.1 10^3/ul (1.6-7.5); NEUTROPHILS % 47.7 % (39.0-77.0); PLATELET COUNT 281 10^3/UL (140-415); RED BLOOD COUNT 2.83 10^6/ul (4.20-5.40); RED CELL DISTRIBUTION WIDTH 12.8 % (11.5-14.5)
[2019-02-27 06:05] LABS: WHITE BLOOD COUNT 6.6 10^3/ul (4.8-10.8)
[2019-02-27 06:48] LABS: ANION GAP 10 (5-13); BLOOD UREA NITROGEN 40 mg/dl (7-20); CALCIUM 10.4 mg/dl (8.4-10.2); CARBON DIOXIDE 26 mmol/L (21-31); CHLORIDE 103 mmol/L (97-110); CREATININE 1.09 mg/dl (0.44-1.00); Estimated GFR 52 mL/min (>60); GLUCOSE 96 mg/dl (70-220); MAGNESIUM 1.4 mg/dl (1.7-2.5); SODIUM 139 mmol/L (135-144)
[2019-02-27 07:14] LABS: POTASSIUM 4.8 mmol/L (3.5-5.1)
[2019-02-27] MEDS: SERTRALINE 100 MG TAB PO (08:06)
[2019-02-27] MEDS: CHOLECALCIFEROL 1,000 UNIT TAB PO (08:06)
[2019-02-27] MEDS: PHENYTOIN 100 MG CAP PO ×3 (08:06→20:45)
[2019-02-27] MEDS: FERROUS SULFATE (EC) 325 MG TAB PO (08:06)
[2019-02-27] MEDS: SEVELAMER CARBONATE 800 MG TABLET PO ×3 (08:06→18:13)
[2019-02-27] MEDS: FOLIC ACID 1 MG TAB PO (08:06)
[2019-02-27] MEDS: THIAMINE 100 MG TAB PO (08:06)
[2019-02-27] MEDS: LORATADINE 10 MG TAB PO (08:06)
[2019-02-27] MEDS: LEVETIRACETAM 750 MG TAB PO ×2 (08:06→20:45)
[2019-02-27] MEDS: MAGNESIUM SULFATE 2 GM/50 ML 50 ML IVPB (08:06)
[2019-02-27] MEDS: DIPHENHYDRAMINE 50 MG INJ IV (12:29)
[2019-02-27 15:01] LABS: CREATININE, RANDOM URINE 40 mg/dL (20-275); MICROALBUMIN <0.2 mg/dL; MICROALBUMIN/CREATININE RATIO NOTE (<30)
[2019-02-28] MEDS: CHOLECALCIFEROL 1,000 UNIT TAB PO (08:26)
[2019-02-28] MEDS: FERROUS SULFATE (EC) 325 MG TAB PO (08:26)
[2019-02-28] MEDS: SEVELAMER CARBONATE 800 MG TABLET PO ×3 (08:26→17:38)
[2019-02-28] MEDS: LEVETIRACETAM 750 MG TAB PO ×2 (08:26→20:58)
[2019-02-28] MEDS: PHENYTOIN 100 MG CAP PO ×3 (08:27→20:57)
[2019-02-28] MEDS: THIAMINE 100 MG TAB PO (08:27)
[2019-02-28] MEDS: FOLIC ACID 1 MG TAB PO (08:27)
[2019-02-28] MEDS: LORATADINE 10 MG TAB PO (08:28)
[2019-02-28] MEDS: SERTRALINE 100 MG TAB PO (08:28)
[2019-02-28] MEDS: DIPHENHYDRAMINE 50 MG INJ IV (17:47)
[2019-03-01] MEDS: DIPHENHYDRAMINE 25 MG CAP PO ×2 (00:10→20:16)
[2019-03-01 05:34] LABS: ADD MAN DIFF? NO
[2019-03-01 05:39] LABS: WHITE BLOOD COUNT 6.7 10^3/ul (4.8-10.8)
[2019-03-01 05:39] LABS: BASOPHIL # 0.1 10^3/ul (0.0-0.1); BASOPHILS % 1.6 % (0.0-2.0); EOSINOPHILS # 0.2 10^3/ul (0.0-0.5); EOSINOPHILS % 2.5 % (0.0-7.0); HEMOGLOBIN 10.1 g/dl (12.0-16.0); LYMPHOCYTES # 2.6 10^3/ul (0.8-2.9); LYMPHOCYTES % 39.2 % (15.0-51.0); MEAN CORPUSCULAR HEMOGLOBIN 33.6 pg (29.0-33.0); MEAN CORPUSCULAR HGB CONC 31.6 g/dl (32.0-37.0); MEAN CORPUSCULAR VOLUME 106.3 fl (82.0-101.0); MEAN PLATELET VOLUME 10.8 fl (7.4-10.4); MONOCYTE # 0.5 10^3/ul (0.3-0.9); MONOCYTES % 7.2 % (0.0-11.0); NEUTROPHIL # 3.3 10^3/ul (1.6-7.5); NEUTROPHILS % 48.9 % (39.0-77.0); PLATELET COUNT 277 10^3/UL (140-415); RED BLOOD COUNT 3.01 10^6/ul (4.20-5.40); RED CELL DISTRIBUTION WIDTH 13.1 % (11.5-14.5)
[2019-03-01 06:12] LABS: ANION GAP 11 (5-13); BLOOD UREA NITROGEN 41 mg/dl (7-20); CALCIUM 10.2 mg/dl (8.4-10.2); CARBON DIOXIDE 28 mmol/L (21-31); CHLORIDE 104 mmol/L (97-110); CREATININE 1.04 mg/dl (0.44-1.00); Estimated GFR 55 mL/min (>60); GLUCOSE 111 mg/dl (70-220); MAGNESIUM 1.5 mg/dl (1.7-2.5); PHOSPHORUS 6.6 mg/dl (2.5-4.9); POTASSIUM 4.8 mmol/L (3.5-5.1); SODIUM 143 mmol/L (135-144)
[2019-03-01] MEDS: LORATADINE 10 MG TAB PO (08:07)
[2019-03-01] MEDS: FOLIC ACID 1 MG TAB PO (08:07)
[2019-03-01] MEDS: SEVELAMER CARBONATE 800 MG TABLET PO ×3 (08:07→17:23)
[2019-03-01] MEDS: PHENYTOIN 100 MG CAP PO ×3 (08:07→20:16)
[2019-03-01] MEDS: SERTRALINE 100 MG TAB PO (08:07)
[2019-03-01] MEDS: THIAMINE 100 MG TAB PO (08:07)
[2019-03-01] MEDS: CHOLECALCIFEROL 1,000 UNIT TAB PO (08:07)
[2019-03-01] MEDS: LEVETIRACETAM 750 MG TAB PO ×2 (08:07→20:16)
[2019-03-01] MEDS: FERROUS SULFATE (EC) 325 MG TAB PO (08:07)
[2019-03-01] MEDS: MAGNESIUM SULFATE 2 GM/50 ML 50 ML IVPB (09:42)
[2019-03-02] MEDS: PHENYTOIN 100 MG CAP PO ×3 (08:34→20:34)
[2019-03-02] MEDS: LEVETIRACETAM 750 MG TAB PO ×2 (08:34→20:34)
[2019-03-02] MEDS: CHOLECALCIFEROL 1,000 UNIT TAB PO (08:34)
[2019-03-02] MEDS: SEVELAMER CARBONATE 800 MG TABLET PO ×3 (08:34→17:49)
[2019-03-02] MEDS: FERROUS SULFATE (EC) 325 MG TAB PO (08:34)
[2019-03-02] MEDS: THIAMINE 100 MG TAB PO (08:35)
[2019-03-02] MEDS: FOLIC ACID 1 MG TAB PO (08:35)
[2019-03-02] MEDS: SERTRALINE 100 MG TAB PO (08:35)
[2019-03-02] MEDS: LORATADINE 10 MG TAB PO (08:35)
[2019-03-02] MEDS: DOCOSANOL 2 GM CREAM TOP ×4 (13:56→20:34)
[2019-03-03 06:07] LABS: ADD MAN DIFF? NO
[2019-03-03 06:14] LABS: WHITE BLOOD COUNT 6.6 10^3/ul (4.8-10.8)
[2019-03-03 06:14] LABS: BASOPHIL # 0.1 10^3/ul (0.0-0.1); BASOPHILS % 1.4 % (0.0-2.0); EOSINOPHILS # 0.2 10^3/ul (0.0-0.5); EOSINOPHILS % 3.3 % (0.0-7.0); HEMATOCRIT 30.4 % (37.0-47.0); LYMPHOCYTES # 2.3 10^3/ul (0.8-2.9); LYMPHOCYTES % 34.4 % (15.0-51.0); MEAN CORPUSCULAR HEMOGLOBIN 34.6 pg (29.0-33.0); MEAN CORPUSCULAR HGB CONC 32.9 g/dl (32.0-37.0); MEAN CORPUSCULAR VOLUME 105.2 fl (82.0-101.0); MEAN PLATELET VOLUME 11.1 fl (7.4-10.4); MONOCYTE # 0.5 10^3/ul (0.3-0.9); MONOCYTES % 8.2 % (0.0-11.0); NEUTROPHIL # 3.4 10^3/ul (1.6-7.5); NEUTROPHILS % 52.2 % (39.0-77.0); PLATELET COUNT 246 10^3/UL (140-415); RED BLOOD COUNT 2.89 10^6/ul (4.20-5.40); RED CELL DISTRIBUTION WIDTH 12.6 % (11.5-14.5)
[2019-03-03 06:54] LABS: ANION GAP 8 (5-13); BLOOD UREA NITROGEN 38 mg/dl (7-20); CALCIUM 10.2 mg/dl (8.4-10.2); CARBON DIOXIDE 27 mmol/L (21-31); CHLORIDE 104 mmol/L (97-110); CREATININE 1.09 mg/dl (0.44-1.00); Estimated GFR 52 mL/min (>60); GLUCOSE 107 mg/dl (70-220); MAGNESIUM 1.5 mg/dl (1.7-2.5); PHOSPHORUS 6.6 mg/dl (2.5-4.9); POTASSIUM 4.4 mmol/L (3.5-5.1); SODIUM 139 mmol/L (135-144)
[2019-03-03] MEDS: SEVELAMER CARBONATE 800 MG TABLET PO ×3 (07:53→17:21)
[2019-03-03] MEDS: MAGNESIUM SULFATE 2 GM/50 ML 50 ML IVPB (07:54)
[2019-03-03] MEDS: MAGNESIUM OXIDE 400 MG TAB PO (08:59)
[2019-03-03] MEDS: SERTRALINE 100 MG TAB PO (08:59)
[2019-03-03] MEDS: THIAMINE 100 MG TAB PO (08:59)
[2019-03-03] MEDS: PHENYTOIN 100 MG CAP PO ×3 (08:59→20:53)
[2019-03-03] MEDS: FOLIC ACID 1 MG TAB PO (08:59)
[2019-03-03] MEDS: LEVETIRACETAM 750 MG TAB PO ×2 (08:59→20:53)
[2019-03-03] MEDS: FERROUS SULFATE (EC) 325 MG TAB PO (08:59)
[2019-03-03] MEDS: CHOLECALCIFEROL 1,000 UNIT TAB PO (08:59)
[2019-03-03] MEDS: LORATADINE 10 MG TAB PO (08:59)
[2019-03-03] MEDS: DIPHENHYDRAMINE 25 MG CAP PO ×2 (09:02→20:54)
[2019-03-03] MEDS: DOCOSANOL 2 GM CREAM TOP ×5 (12:00→20:53)
[2019-03-04] MEDS: LORATADINE 10 MG TAB PO (08:37)
[2019-03-04] MEDS: THIAMINE 100 MG TAB PO (08:38)
[2019-03-04] MEDS: MAGNESIUM OXIDE 400 MG TAB PO (08:38)
[2019-03-04] MEDS: FERROUS SULFATE (EC) 325 MG TAB PO (08:38)
[2019-03-04] MEDS: CHOLECALCIFEROL 1,000 UNIT TAB PO (08:38)
[2019-03-04] MEDS: SERTRALINE 100 MG TAB PO (08:38)
[2019-03-04] MEDS: SEVELAMER CARBONATE 800 MG TABLET PO ×3 (08:38→17:48)
[2019-03-04] MEDS: DOCOSANOL 2 GM CREAM TOP ×5 (08:39→20:21)
[2019-03-04] MEDS: LEVETIRACETAM 750 MG TAB PO ×2 (08:39→20:19)
[2019-03-04] MEDS: PHENYTOIN 100 MG CAP PO ×3 (08:39→20:19)
[2019-03-04] MEDS: FOLIC ACID 1 MG TAB PO (08:39)
[2019-03-04] MEDS: MAGNESIUM SULFATE 4 GM/100 ML 100 ML IVPB (13:39)
[2019-03-04] MEDS: DIPHENHYDRAMINE 25 MG CAP PO (17:52)
[2019-03-04] MEDS: ACETAMINOPHEN 325 MG TAB PO (20:19)
[2019-03-05] MEDS: DIPHENHYDRAMINE 25 MG CAP PO ×4 (00:32→23:07)
[2019-03-05 07:04] LABS: ALBUMIN 3.8 g/dl (3.3-4.9); ANION GAP 8 (5-13); BLOOD UREA NITROGEN 42 mg/dl (7-20); CALCIUM 10.1 mg/dl (8.4-10.2); CARBON DIOXIDE 30 mmol/L (21-31); CHLORIDE 101 mmol/L (97-110); CREATININE 1.18 mg/dl (0.44-1.00); GLUCOSE 109 mg/dl (70-220); MAGNESIUM 2.1 mg/dl (1.7-2.5); PHOSPHORUS 6.4 mg/dl (2.5-4.9); POTASSIUM 3.9 mmol/L (3.5-5.1); SODIUM 139 mmol/L (135-144)
[2019-03-05] MEDS: PHENYTOIN 100 MG CAP PO ×3 (08:27→20:25)
[2019-03-05] MEDS: FOLIC ACID 1 MG TAB PO (08:27)
[2019-03-05] MEDS: CHOLECALCIFEROL 1,000 UNIT TAB PO (08:27)
[2019-03-05] MEDS: SEVELAMER CARBONATE 800 MG TABLET PO ×3 (08:27→16:42)
[2019-03-05] MEDS: THIAMINE 100 MG TAB PO (08:27)
[2019-03-05] MEDS: LORATADINE 10 MG TAB PO (08:27)
[2019-03-05] MEDS: SERTRALINE 100 MG TAB PO (08:27)
[2019-03-05] MEDS: LEVETIRACETAM 750 MG TAB PO ×2 (08:27→20:25)
[2019-03-05] MEDS: FERROUS SULFATE (EC) 325 MG TAB PO (08:27)
[2019-03-05] MEDS: MAGNESIUM OXIDE 400 MG TAB PO (08:27)
[2019-03-05] MEDS: DOCOSANOL 2 GM CREAM TOP ×5 (08:36→20:25)
[2019-03-05] MEDS: SOD CHLORIDE 0.9% 1,000 ML IV (09:21)
[2019-03-05] MEDS: ACETAMINOPHEN 325 MG TAB PO (20:25)
[2019-03-06 06:50] LABS: ALBUMIN 3.6 g/dl (3.3-4.9); ANION GAP 10 (5-13); BLOOD UREA NITROGEN 42 mg/dl (7-20); CARBON DIOXIDE 25 mmol/L (21-31); CHLORIDE 106 mmol/L (97-110); CREATININE 1.18 mg/dl (0.44-1.00); GLUCOSE 96 mg/dl (70-220); MAGNESIUM 1.6 mg/dl (1.7-2.5); PHOSPHORUS 6.4 mg/dl (2.5-4.9); POTASSIUM 4.5 mmol/L (3.5-5.1); SODIUM 141 mmol/L (135-144)
[2019-03-06] MEDS: FERROUS SULFATE (EC) 325 MG TAB PO (08:26)
[2019-03-06] MEDS: SERTRALINE 100 MG TAB PO (08:26)
[2019-03-06] MEDS: LORATADINE 10 MG TAB PO (08:26)
[2019-03-06] MEDS: SEVELAMER CARBONATE 800 MG TABLET PO ×3 (08:26→17:28)
[2019-03-06] MEDS: LEVETIRACETAM 750 MG TAB PO ×2 (08:26→20:23)
[2019-03-06] MEDS: FOLIC ACID 1 MG TAB PO (08:26)
[2019-03-06] MEDS: CHOLECALCIFEROL 1,000 UNIT TAB PO (08:26)
[2019-03-06] MEDS: MAGNESIUM OXIDE 400 MG TAB PO (08:27)
[2019-03-06] MEDS: DOCOSANOL 2 GM CREAM TOP ×5 (08:27→20:26)
[2019-03-06] MEDS: MAGNESIUM SULFATE 2 GM/50 ML 50 ML IVPB (08:27)
[2019-03-06] MEDS: PHENYTOIN 100 MG CAP PO ×3 (08:27→20:26)
[2019-03-06] MEDS: THIAMINE 100 MG TAB PO (09:36)
[2019-03-06] MEDS: DIPHENHYDRAMINE 25 MG CAP PO (20:41)
[2019-03-07 05:30] LABS: ALBUMIN 3.7 g/dl (3.3-4.9); ANION GAP 6 (5-13); BLOOD UREA NITROGEN 36 mg/dl (7-20); CALCIUM 10.3 mg/dl (8.4-10.2); CARBON DIOXIDE 29 mmol/L (21-31); CHLORIDE 104 mmol/L (97-110); CREATININE 1.35 mg/dl (0.44-1.00); GLUCOSE 97 mg/dl (70-220); MAGNESIUM 1.7 mg/dl (1.7-2.5); PHOSPHORUS 6.7 mg/dl (2.5-4.9); POTASSIUM 4.9 mmol/L (3.5-5.1); SODIUM 139 mmol/L (135-144)
[2019-03-07] MEDS: MAGNESIUM OXIDE 400 MG TAB PO (08:08)
[2019-03-07] MEDS: THIAMINE 100 MG TAB PO (08:08)
[2019-03-07] MEDS: SERTRALINE 100 MG TAB PO (08:08)
[2019-03-07] MEDS: LORATADINE 10 MG TAB PO (08:08)
[2019-03-07] MEDS: FOLIC ACID 1 MG TAB PO (08:08)
[2019-03-07] MEDS: LEVETIRACETAM 750 MG TAB PO ×2 (08:08→20:29)
[2019-03-07] MEDS: SEVELAMER CARBONATE 800 MG TABLET PO ×3 (08:08→17:02)
[2019-03-07] MEDS: FERROUS SULFATE (EC) 325 MG TAB PO (08:08)
[2019-03-07] MEDS: CHOLECALCIFEROL 1,000 UNIT TAB PO (08:08)
[2019-03-07] MEDS: DOCOSANOL 2 GM CREAM TOP ×5 (08:09→20:29)
[2019-03-07] MEDS: PHENYTOIN 100 MG CAP PO ×3 (08:09→20:29)
[2019-03-07] MEDS: DIPHENHYDRAMINE 25 MG CAP PO ×2 (13:23→20:34)
[2019-03-08] MEDS: DIPHENHYDRAMINE 25 MG CAP PO ×2 (02:50→20:38)
[2019-03-08 05:29] LABS: ADD MAN DIFF? NO
[2019-03-08 05:37] LABS: WHITE BLOOD COUNT 6.2 10^3/ul (4.8-10.8)
[2019-03-08 05:37] LABS: BASOPHIL # 0.1 10^3/ul (0.0-0.1); EOSINOPHILS # 0.2 10^3/ul (0.0-0.5); EOSINOPHILS % 3.6 % (0.0-7.0); HEMOGLOBIN 10.3 g/dl (12.0-16.0); LYMPHOCYTES # 2.4 10^3/ul (0.8-2.9); LYMPHOCYTES % 38.5 % (15.0-51.0); MEAN CORPUSCULAR HEMOGLOBIN 33.6 pg (29.0-33.0); MEAN CORPUSCULAR HGB CONC 32.2 g/dl (32.0-37.0); MEAN CORPUSCULAR VOLUME 104.2 fl (82.0-101.0); MEAN PLATELET VOLUME 11.3 fl (7.4-10.4); MONOCYTE # 0.5 10^3/ul (0.3-0.9); MONOCYTES % 8.1 % (0.0-11.0); NEUTROPHILS % 48.5 % (39.0-77.0); PLATELET COUNT 260 10^3/UL (140-415); RED BLOOD COUNT 3.07 10^6/ul (4.20-5.40); RED CELL DISTRIBUTION WIDTH 12.6 % (11.5-14.5)
[2019-03-08 06:08] LABS: ANION GAP 8 (5-13); BLOOD UREA NITROGEN 44 mg/dl (7-20); CALCIUM 10.1 mg/dl (8.4-10.2); CARBON DIOXIDE 27 mmol/L (21-31); CHLORIDE 105 mmol/L (97-110); CREATININE 1.31 mg/dl (0.44-1.00); Estimated GFR 42 mL/min (>60); GLUCOSE 96 mg/dl (70-220); MAGNESIUM 1.6 mg/dl (1.7-2.5); PHOSPHORUS 7.5 mg/dl (2.5-4.9); POTASSIUM 4.6 mmol/L (3.5-5.1); SODIUM 140 mmol/L (135-144)
[2019-03-08] MEDS: LORATADINE 10 MG TAB PO (08:43)
[2019-03-08] MEDS: SEVELAMER CARBONATE 800 MG TABLET PO ×3 (08:44→17:20)
[2019-03-08] MEDS: PHENYTOIN 100 MG CAP PO ×3 (08:44→20:38)
[2019-03-08] MEDS: THIAMINE 100 MG TAB PO (08:44)
[2019-03-08] MEDS: MAGNESIUM OXIDE 400 MG TAB PO (08:44)
[2019-03-08] MEDS: FERROUS SULFATE (EC) 325 MG TAB PO (08:44)
[2019-03-08] MEDS: SERTRALINE 100 MG TAB PO (08:44)
[2019-03-08] MEDS: FOLIC ACID 1 MG TAB PO (08:44)
[2019-03-08] MEDS: LEVETIRACETAM 750 MG TAB PO ×2 (08:44→20:37)
[2019-03-08] MEDS: CHOLECALCIFEROL 1,000 UNIT TAB PO (08:44)
[2019-03-08] MEDS: DOCOSANOL 2 GM CREAM TOP ×5 (09:00→20:39)
[2019-03-09 06:19] LABS: ADD MAN DIFF? NO
[2019-03-09 06:36] LABS: WHITE BLOOD COUNT 6.1 10^3/ul (4.8-10.8)
[2019-03-09 06:36] LABS: BASOPHIL # 0.1 10^3/ul (0.0-0.1); BASOPHILS % 0.8 % (0.0-2.0); EOSINOPHILS # 0.2 10^3/ul (0.0-0.5); EOSINOPHILS % 3.6 % (0.0-7.0); HEMATOCRIT 29.7 % (37.0-47.0); HEMOGLOBIN 9.6 g/dl (12.0-16.0); LYMPHOCYTES # 2.4 10^3/ul (0.8-2.9); LYMPHOCYTES % 39.5 % (15.0-51.0); MEAN CORPUSCULAR HEMOGLOBIN 33.7 pg (29.0-33.0); MEAN CORPUSCULAR HGB CONC 32.3 g/dl (32.0-37.0); MEAN CORPUSCULAR VOLUME 104.2 fl (82.0-101.0); MEAN PLATELET VOLUME 11.6 fl (7.4-10.4); MONOCYTE # 0.5 10^3/ul (0.3-0.9); MONOCYTES % 8.5 % (0.0-11.0); NEUTROPHIL # 2.9 10^3/ul (1.6-7.5); NEUTROPHILS % 47.3 % (39.0-77.0); PLATELET COUNT 260 10^3/UL (140-415); RED BLOOD COUNT 2.85 10^6/ul (4.20-5.40); RED CELL DISTRIBUTION WIDTH 12.4 % (11.5-14.5)
[2019-03-09 06:49] LABS: ANION GAP 10 (5-13); BLOOD UREA NITROGEN 45 mg/dl (7-20); CARBON DIOXIDE 26 mmol/L (21-31); CHLORIDE 103 mmol/L (97-110); CREATININE 1.27 mg/dl (0.44-1.00); Estimated GFR 44 mL/min (>60); GLUCOSE 100 mg/dl (70-220); MAGNESIUM 1.5 mg/dl (1.7-2.5); PHOSPHORUS 6.6 mg/dl (2.5-4.9); POTASSIUM 4.3 mmol/L (3.5-5.1); SODIUM 139 mmol/L (135-144)
[2019-03-09] MEDS: SEVELAMER CARBONATE 800 MG TABLET PO ×3 (08:19→17:51)
[2019-03-09] MEDS: LEVETIRACETAM 750 MG TAB PO ×2 (08:19→20:32)
[2019-03-09] MEDS: FOLIC ACID 1 MG TAB PO (08:20)
[2019-03-09] MEDS: THIAMINE 100 MG TAB PO (08:20)
[2019-03-09] MEDS: MAGNESIUM OXIDE 400 MG TAB PO ×2 (08:20→20:31)
[2019-03-09] MEDS: CHOLECALCIFEROL 1,000 UNIT TAB PO (08:20)
[2019-03-09] MEDS: PHENYTOIN 100 MG CAP PO ×3 (08:21→20:32)
[2019-03-09] MEDS: FERROUS SULFATE (EC) 325 MG TAB PO (08:21)
[2019-03-09] MEDS: LORATADINE 10 MG TAB PO (08:21)
[2019-03-09] MEDS: SERTRALINE 100 MG TAB PO (08:22)
[2019-03-09] MEDS: DOCOSANOL 2 GM CREAM TOP ×5 (08:23→20:32)
[2019-03-09] MEDS: DIPHENHYDRAMINE 25 MG CAP PO (20:33)
[2019-03-10 05:28] LABS: ADD MAN DIFF? NO
[2019-03-10 05:36] LABS: BASOPHIL # 0.1 10^3/ul (0.0-0.1); BASOPHILS % 0.8 % (0.0-2.0); EOSINOPHILS # 0.2 10^3/ul (0.0-0.5); EOSINOPHILS % 3.3 % (0.0-7.0); HEMATOCRIT 31.5 % (37.0-47.0); HEMOGLOBIN 10.4 g/dl (12.0-16.0); LYMPHOCYTES # 2.5 10^3/ul (0.8-2.9); LYMPHOCYTES % 41.9 % (15.0-51.0); MEAN CORPUSCULAR HEMOGLOBIN 34.1 pg (29.0-33.0); MEAN CORPUSCULAR VOLUME 103.3 fl (82.0-101.0); MEAN PLATELET VOLUME 11.4 fl (7.4-10.4); MONOCYTE # 0.5 10^3/ul (0.3-0.9); MONOCYTES % 8.2 % (0.0-11.0); NEUTROPHIL # 2.7 10^3/ul (1.6-7.5); NEUTROPHILS % 45.5 % (39.0-77.0); PLATELET COUNT 274 10^3/UL (140-415); RED BLOOD COUNT 3.05 10^6/ul (4.20-5.40); RED CELL DISTRIBUTION WIDTH 12.4 % (11.5-14.5)
[2019-03-10 06:13] LABS: ANION GAP 9 (5-13); BLOOD UREA NITROGEN 47 mg/dl (7-20); CARBON DIOXIDE 27 mmol/L (21-31); CHLORIDE 103 mmol/L (97-110); CREATININE 1.28 mg/dl (0.44-1.00); Estimated GFR 43 mL/min (>60); GLUCOSE 98 mg/dl (70-220); MAGNESIUM 1.6 mg/dl (1.7-2.5); PHOSPHORUS 6.3 mg/dl (2.5-4.9); POTASSIUM 4.6 mmol/L (3.5-5.1); SODIUM 139 mmol/L (135-144)
[2019-03-10] MEDS: MAGNESIUM OXIDE 400 MG TAB PO ×2 (08:08→20:39)
[2019-03-10] MEDS: CHOLECALCIFEROL 1,000 UNIT TAB PO (08:08)
[2019-03-10] MEDS: THIAMINE 100 MG TAB PO (08:08)
[2019-03-10] MEDS: LEVETIRACETAM 750 MG TAB PO ×2 (08:08→20:38)
[2019-03-10] MEDS: SEVELAMER CARBONATE 800 MG TABLET PO ×3 (08:08→17:13)
[2019-03-10] MEDS: FERROUS SULFATE (EC) 325 MG TAB PO (08:09)
[2019-03-10] MEDS: SERTRALINE 100 MG TAB PO (08:09)
[2019-03-10] MEDS: LORATADINE 10 MG TAB PO (08:09)
[2019-03-10] MEDS: FOLIC ACID 1 MG TAB PO (08:09)
[2019-03-10] MEDS: PHENYTOIN 100 MG CAP PO ×3 (08:09→20:39)
[2019-03-10] MEDS: DOCOSANOL 2 GM CREAM TOP ×5 (08:10→20:40)
[2019-03-10] MEDS: SOD CHLORIDE 0.9% 1,000 ML IV (13:39)
[2019-03-11] MEDS: DIPHENHYDRAMINE 25 MG CAP PO (03:03)
[2019-03-11] MEDS: LORATADINE 10 MG TAB PO (08:40)
[2019-03-11] MEDS: CHOLECALCIFEROL 1,000 UNIT TAB PO (08:40)
[2019-03-11] MEDS: THIAMINE 100 MG TAB PO (08:40)
[2019-03-11] MEDS: SEVELAMER CARBONATE 800 MG TABLET PO ×2 (08:40→12:35)
[2019-03-11] MEDS: MAGNESIUM OXIDE 400 MG TAB PO (08:40)
[2019-03-11] MEDS: LEVETIRACETAM 750 MG TAB PO (08:40)
[2019-03-11] MEDS: PHENYTOIN 100 MG CAP PO ×2 (08:40→12:36)
[2019-03-11] MEDS: SERTRALINE 100 MG TAB PO (08:40)
[2019-03-11] MEDS: FERROUS SULFATE (EC) 325 MG TAB PO (08:40)
[2019-03-11] MEDS: DOCOSANOL 2 GM CREAM TOP ×2 (08:41→12:36)
[2019-03-11] MEDS: FOLIC ACID 1 MG TAB PO (08:41)
== END 2019-03-11 15:00 | DRG 92 ==
LOC: E/R 23:46 → 6WM 02-18 16:56 → PP2 02-20 05:11 → MS3 02-22 00:30 → 6WM 02-15 04:04
DX: G92 Toxic encephalopathy (principal); N17.9 Acute kidney failure, unspecified; E87.1 Hypo-osmolality and hyponatremia; F33.9 Major depressive disorder, recurrent, unspecified; G40.909 Epilepsy, unspecified, not intractable, without status epilepticus; K70.10 Alcoholic hepatitis without ascites; F10.10 Alcohol abuse, uncomplicated; G93.49 Other encephalopathy; H54.61 Unqualified visual loss, right eye, normal vision left eye; E87.5 Hyperkalemia; E83.42 Hypomagnesemia; D50.9 Iron deficiency anemia, unspecified; B00.1 Herpesviral vesicular dermatitis; Z59.0 Homelessness
CPT/HCPCS: 36415; 70450; 70551; 71045; 76775; 80048; 80053; 80061; 80069; 80177; 80185; 80307; 81001; 81003; 82043; 82140; 82306; 82652; 83036; 83540; 83735; 83970; 84100; 84155; 84300; 84443; 84484; 85025; 85610; 85730; 93306; 96374; 97110; 97116; 97162; 97167; 97530; 97535; 99285-25